=== PATIENT | female | born 1970 | race Caucasian/White ===

== ENCOUNTER 2023-08-13 15:06 | Inpatient (IN) | payer SELFPAY ==
[~2023-08-13] VITALS: Ht 172.7 cm; Wt 75.9 kg
[2023-08-13 16:08] LABS: CLARITY URINE CLEAR (CLEAR); COLOR URINE YELLOW (YELLOW); GLUCOSE URINE 3+ (NEGATIVE); KETONES URINE NEGATIVE (NEGATIVE); LEUKOCYTE ESTERASE URINE NEGATIVE (NEGATIVE); NITRITE URINE NEGATIVE (NEGATIVE); OCCULT BLOOD URINE NEGATIVE (NEGATIVE); PH URINE 6.5 (4.5-8.0); PROTEIN URINE NEGATIVE (NEGATIVE); SPECIFIC GRAVITY URINE 1.023 (1.005-1.030); UROBILINOGEN URINE 0.2 E.U./dL (0.2-1.0)
[2023-08-13 16:24] LABS: CHLORIDE 95 mEq/L (98-107); POTASSIUM 5.1 mEq/L (3.5-5.1); SODIUM 126 mEq/L (136-145)
[2023-08-13 16:26] LABS: CALCIUM 9.6 mg/dL (8.7-10.4)
[2023-08-13 16:28] LABS: BACTERIA URINE NONE SEEN; RBC URINE NONE SEEN /hpf (0-2); SQUAMOUS EPITHELIAL CELL URINE RARE /lpf (RARE/1+); WBC URINE 0-2 /hpf (0-2)
[2023-08-13 16:30] LABS: CREATININE 0.8 mg/dL (0.6-1.0)
[2023-08-13 16:31] LABS: GLUCOSE 258 mg/dL (70-105); UREA NITROGEN BLOOD 5 mg/dL (9-23)
[2023-08-13 16:32] LABS: ALANINE AMINOTRANSFERASE 23 IU/L (10-49); ALBUMIN 4.6 g/dL (3.2-4.8); ASPARTATE AMINOTRANSFERASE 43 IU/L (<34)
[2023-08-13 16:33] LABS: BILIRUBIN TOTAL 0.6 mg/dL (0.1-1.0); PROTEIN TOTAL 6.9 g/dL (6.0-8.3)
[2023-08-13 16:35] LABS: BILIRUBIN DIRECT < 0.1 mg/dL (<=3.0); CARBON DIOXIDE < 10 mEq/L (21-32)
[2023-08-13 16:53] LABS: BASOPHILS % 0.3 % (0.0-2.0); EOSINOPHILS % 1.1 % (0.0-5.0); HEMATOCRIT. 36.4 % (36.0-48.0); HEMOGLOBIN. 12.2 g/dL (12.0-16.0); LYMPHOCYTES % 19.3 % (20.0-50.0); MEAN CORPUSCULAR HEMOGLOBIN 30.4 pg (28.0-32.0); MEAN CORPUSCULAR HGB CONC 33.5 g/dL (31.0-37.0); MEAN CORPUSCULAR VOLUME 90.6 fL (81.0-99.0); MEAN PLATELET VOLUME 9.5 fl (7.4-10.4); MONOCYTES % 5.1 % (2.0-8.0); NEUTROPHILS % 74.2 % (40.0-76.0); PLATELET 378 x1000/uL (130-400); RED BLOOD CELL COUNT 4.01 mill/uL (4.2-5.4); RED CELL DISTRIBUTION WIDTH 13.3 % (11.6-14.6); WHITE BLOOD COUNT 11.6 x1000/uL (4.5-11.0)
[2023-08-13] MEDS: SODIUM CHLORIDE 0.9% 1,000 ML IV SCH (20:15)
[2023-08-13] MEDS ORDERED: KCL 20MEQ/100ML PREMIX 100 ML IV PRN (20:15)
[2023-08-13] MEDS ORDERED: DEXTROSE 50% WATER 50ML SYRINGE IV PRN (20:15)
[2023-08-13] MEDS ORDERED: MAGNESIUM 2 G PREMIX 50 ML IV PRN (20:15)
[2023-08-13] MEDS: DEXT 5%/0.9% NACL 1,000 ML IV SCH (20:15)
[2023-08-13] MEDS: LACTATED RINGERS 1,000 ML IV SCH (20:15)
[2023-08-13] MEDS ORDERED: SODIUM PHOSPHATE 15 MMOL in SODIUM CHLORIDE 0.9% 245 ML IV PRN (20:15)
[2023-08-13] MEDS: BLOOD SUGAR DIAGNOSTIC STRIP TEST SCH (20:15)
[2023-08-13] MEDS ORDERED: BLOOD SUGAR DIAGNOSTIC STRIP TEST PRN (20:15)
[2023-08-13] MEDS ORDERED: INSULIN REGULAR (DRIP) 100 UNITS in SODIUM CHLORIDE 0.9% 99 ML IV SCH (20:15)
[2023-08-13 20:43] LABS: CHLORIDE 96 mEq/L (98-107); POTASSIUM 4.7 mEq/L (3.5-5.1); SODIUM 129 mEq/L (136-145)
[2023-08-13 20:52] LABS: PHOSPHORUS 3.4 mg/dL (2.5-4.9)
[2023-08-13 21:00] LABS: CARBON DIOXIDE < 10 mEq/L (21-32)
[2023-08-13 21:57] LABS: BG BASE EXCESS 1.9 mmol/L (-2.0-2.0); BG CARBOXYHEMOGLOBIN 0.5 % (0.5-1.5); BG DEOXYHEMOGLOBIN 5.9 % (0.0-5.0); BG METHEMOGLOBIN 0.2 % (0.0-1.5); BG OXYGEN SATURATION 94.1 % (92.0-98.5); BG OXYHEMOGLOBIN 93.4 % (94.0-97.0); BG PCO2 34.8 mmHg (35.0-45.0); BG PH 7.475 (7.350-7.450); BG PO2 69.9 mmHg (75.0-100.0); BG TOTAL HEMOGLOBIN 14.4 g/dL (12.0-18.0)
[2023-08-13] MEDS: INSULIN REGULAR 100U/100ML PMX 100 ML IV SCH (22:10)
[2023-08-14] VITALS (37 sets, daily range): BP systolic 101–157; BP diastolic 65–96; PULSE 72–93; RESP 0–30; TEMP 97.7–100.5
[2023-08-14 01:44] LABS: CHLORIDE 104 mEq/L (98-107); POTASSIUM 3.1 mEq/L (3.5-5.1); SODIUM 135 mEq/L (136-145)
[2023-08-14 01:52] LABS: CARBON DIOXIDE < 10 mEq/L (21-32)
[2023-08-14] MEDS: POTASSIUM CHLORIDE 40 MEQ in SODIUM CHLORIDE 0.9% 230 ML IV PRN (03:36)
[2023-08-14] MEDS ORDERED: POTASSIUM CHLORIDE 40 MEQ in SODIUM CHLORIDE 0.9% 230 ML IV PRN (06:15)
[2023-08-14] MEDS ORDERED: SODIUM PHOSPHATE 15 MMOL in SODIUM CHLORIDE 0.9% 245 ML IV PRN (06:15)
[2023-08-14] MEDS: BLOOD SUGAR DIAGNOSTIC STRIP TEST SCH (06:35)
[2023-08-14] MEDS: LACTATED RINGERS 1,000 ML IV PRN (06:35)
[2023-08-14 07:03] LABS: BASOPHILS % 0.3 % (0.0-2.0); EOSINOPHILS % 0.5 % (0.0-5.0); HEMATOCRIT. 37.3 % (36.0-48.0); HEMOGLOBIN. 13.2 g/dL (12.0-16.0); LYMPHOCYTES % 14.9 % (20.0-50.0); MEAN CORPUSCULAR HEMOGLOBIN 32.4 pg (28.0-32.0); MEAN CORPUSCULAR HGB CONC 35.4 g/dL (31.0-37.0); MEAN CORPUSCULAR VOLUME 91.4 fL (81.0-99.0); MEAN PLATELET VOLUME 8.4 fl (7.4-10.4); MONOCYTES % 5.9 % (2.0-8.0); NEUTROPHILS % 78.4 % (40.0-76.0); PLATELET 362 x1000/uL (130-400); RED BLOOD CELL COUNT 4.08 mill/uL (4.2-5.4); RED CELL DISTRIBUTION WIDTH 13.4 % (11.6-14.6); WHITE BLOOD COUNT 15.4 x1000/uL (4.5-11.0)
[2023-08-14 07:09] LABS: CHLORIDE 101 mEq/L (98-107); POTASSIUM 3.9 mEq/L (3.5-5.1); SODIUM 133 mEq/L (136-145)
[2023-08-14 07:10] LABS: CALCIUM 9.1 mg/dL (8.7-10.4); CARBON DIOXIDE 10 mEq/L (21-32)
[2023-08-14 07:15] LABS: CREATININE 0.6 mg/dL (0.6-1.0); GLUCOSE 217 mg/dL (70-105)
[2023-08-14 07:17] LABS: PHOSPHORUS 3.1 mg/dL (2.5-4.9)
[2023-08-14 07:30] LABS: UREA NITROGEN BLOOD < 5 mg/dL (9-23)
[2023-08-14] MEDS: MAGNESIUM 2 G PREMIX 50 ML IV PRN (14:20)
[2023-08-14] MEDS: INSULIN REGULAR 100U/100ML PMX 100 ML IV SCH (14:27)
[2023-08-14] MEDS: MORPHINE SULFATE 2 MG/ML CPJ (NOT FOR IM USE) IV PRN (14:35)
[2023-08-14 18:40] LABS: HEPATITIS B SURFACE ANTIGEN NEGATIVE (Negative)
[2023-08-14 18:45] LABS: CHLORIDE 105 mEq/L (98-107); POTASSIUM 3.3 mEq/L (3.5-5.1); SODIUM 137 mEq/L (136-145)
[2023-08-14 18:46] LABS: CARBON DIOXIDE 20 mEq/L (21-32)
[2023-08-14 18:47] LABS: CALCIUM 8.8 mg/dL (8.7-10.4)
[2023-08-14 18:51] LABS: CREATININE 0.5 mg/dL (0.6-1.0); GLUCOSE 133 mg/dL (70-105)
[2023-08-14 18:53] LABS: UREA NITROGEN BLOOD < 5 mg/dL (9-23)
[2023-08-14 18:54] LABS: PHOSPHORUS 2.7 mg/dL (2.5-4.9)
[2023-08-14 19:00] LABS: HEPATITIS A AB IGM NEGATIVE (Negative)
[2023-08-14 19:01] LABS: HEPATITIS B CORE AB IGM NEGATIVE (Negative); HEPATITIS C AB NON REACTIVE (Neg) (Negative)
[2023-08-14] MEDS: KCL 20MEQ/100ML PREMIX 100 ML IV PRN (19:58)
[2023-08-14] MEDS ORDERED: DEXTROSE 50% WATER 50ML SYRINGE IV PRN (20:30)
[2023-08-14] MEDS: INSULIN GLARGINE 100 UNITS/ML SUBCUT SCH (21:01)
[2023-08-14] MEDS: SODIUM CHLORIDE 0.9% 1,000 ML IV SCH (21:01)
[2023-08-14] MEDS: ACETAMINOPHEN 325MG TABLET PO PRN (21:01)
[2023-08-14] MEDS: INSULIN LISPRO 100 UNITS/ML SUBCUT SCH (21:02)
[2023-08-15] VITALS (19 sets, daily range): BP systolic 92–147; BP diastolic 52–94; PULSE 66–90; RESP 0–31; TEMP 97.1–98.9
[2023-08-15 05:12] LABS: AMYLASE 33 IU/L (30-118)
[2023-08-15 07:15] LABS: BASOPHILS % 0.4 % (0.0-2.0); CHLORIDE 107 mEq/L (98-107); EOSINOPHILS % 2.3 % (0.0-5.0); HEMOGLOBIN. 11.8 g/dL (12.0-16.0); LYMPHOCYTES % 22.2 % (20.0-50.0); MEAN CORPUSCULAR HEMOGLOBIN 30.7 pg (28.0-32.0); MEAN CORPUSCULAR HGB CONC 33.7 g/dL (31.0-37.0); MEAN CORPUSCULAR VOLUME 90.9 fL (81.0-99.0); MEAN PLATELET VOLUME 8.2 fl (7.4-10.4); MONOCYTES % 6.3 % (2.0-8.0); NEUTROPHILS % 68.8 % (40.0-76.0); PLATELET 330 x1000/uL (130-400); POTASSIUM 3.5 mEq/L (3.5-5.1); RED BLOOD CELL COUNT 3.85 mill/uL (4.2-5.4); RED CELL DISTRIBUTION WIDTH 13.8 % (11.6-14.6); SODIUM 136 mEq/L (136-145); WHITE BLOOD COUNT 12.8 x1000/uL (4.5-11.0)
[2023-08-15 07:16] LABS: CALCIUM 8.9 mg/dL (8.7-10.4); CARBON DIOXIDE 20 mEq/L (21-32)
[2023-08-15 07:21] LABS: CREATININE 0.5 mg/dL (0.6-1.0); GLUCOSE 173 mg/dL (70-105)
[2023-08-15 07:23] LABS: UREA NITROGEN BLOOD < 5 mg/dL (9-23)
[2023-08-15] MEDS: ENOXAPARIN 40MG/0.4ML SYR SUBCUT SCH (09:03)
[2023-08-15] MEDS: PANTOPRAZOLE SODIUM 40 MG/VIAL IV SCH (09:03)
[2023-08-15 09:09] LABS: BASOPHILS % 0.7 % (0.0-2.0); EOSINOPHILS % 2.2 % (0.0-5.0); HEMATOCRIT. 34.5 % (36.0-48.0); HEMOGLOBIN. 11.9 g/dL (12.0-16.0); LYMPHOCYTES % 21.3 % (20.0-50.0); MEAN CORPUSCULAR HEMOGLOBIN 31.6 pg (28.0-32.0); MEAN CORPUSCULAR HGB CONC 34.4 g/dL (31.0-37.0); MEAN CORPUSCULAR VOLUME 91.8 fL (81.0-99.0); MEAN PLATELET VOLUME 7.8 fl (7.4-10.4); MONOCYTES % 7.1 % (2.0-8.0); NEUTROPHILS % 68.7 % (40.0-76.0); PLATELET 350 x1000/uL (130-400); RED BLOOD CELL COUNT 3.75 mill/uL (4.2-5.4); RED CELL DISTRIBUTION WIDTH 13.7 % (11.6-14.6); WHITE BLOOD COUNT 11.2 x1000/uL (4.5-11.0)
[2023-08-15] MEDS ORDERED: NALOXONE HCL 0.4MG/ML VIAL IV PRN (09:15)
[2023-08-15 09:16] LABS: CHLORIDE 106 mEq/L (98-107); POTASSIUM 3.5 mEq/L (3.5-5.1); SODIUM 136 mEq/L (136-145)
[2023-08-15 09:17] LABS: CARBON DIOXIDE 22 mEq/L (21-32)
[2023-08-15 09:21] LABS: CREATININE 0.5 mg/dL (0.6-1.0); GLUCOSE 171 mg/dL (70-105)
[2023-08-15 09:22] LABS: UREA NITROGEN BLOOD 5 mg/dL (9-23)
[2023-08-15 09:23] LABS: AMYLASE 37 IU/L (30-118)
[2023-08-15] MEDS ORDERED: MAGNESIUM/ALUMINUM HYDROXIDE/SIMETHICONE 30ML UDC PO PRN (13:15)
[2023-08-15] MEDS: MAGNESIUM/ALUMINUM HYDROXIDE/SIMETHICONE 30ML UDC PO NR (13:15)
[2023-08-15] MEDS ORDERED: DEXTROSE 50% WATER 50ML SYRINGE IV PRN (19:30)
[2023-08-15] MEDS: BLOOD SUGAR DIAGNOSTIC STRIP TEST SCH ×2 (21:58)
[2023-08-15] MEDS: INSULIN LISPRO 100 UNITS/ML SUBCUT SCH (21:59)
[2023-08-16] VITALS: BP 123/66; PULSE 72; RESP 18; RESP 20; TEMP 97.5
[2023-08-16 04:00] VITALS: BP 115/63; PULSE 71; RESP 16; TEMP 97.5; TEMP 97.9
[2023-08-16 06:21] LABS: BASOPHILS % 0.7 % (0.0-2.0); EOSINOPHILS % 3.5 % (0.0-5.0); HEMATOCRIT. 35.4 % (36.0-48.0); HEMOGLOBIN. 12.2 g/dL (12.0-16.0); LYMPHOCYTES % 25.9 % (20.0-50.0); MEAN CORPUSCULAR HEMOGLOBIN 31.4 pg (28.0-32.0); MEAN CORPUSCULAR HGB CONC 34.4 g/dL (31.0-37.0); MEAN CORPUSCULAR VOLUME 91.2 fL (81.0-99.0); MONOCYTES % 7.8 % (2.0-8.0); NEUTROPHILS % 62.1 % (40.0-76.0); PLATELET 337 x1000/uL (130-400); RED BLOOD CELL COUNT 3.88 mill/uL (4.2-5.4); WHITE BLOOD COUNT 9.4 x1000/uL (4.5-11.0)
[2023-08-16 06:49] LABS: CALCIUM 9.1 mg/dL (8.7-10.4); CARBON DIOXIDE 23 mEq/L (21-32); CHLORIDE 104 mEq/L (98-107); POTASSIUM 3.6 mEq/L (3.5-5.1); SODIUM 137 mEq/L (136-145)
[2023-08-16 06:54] LABS: CREATININE 0.5 mg/dL (0.6-1.0)
[2023-08-16 06:55] LABS: GLUCOSE 169 mg/dL (70-105); UREA NITROGEN BLOOD 7 mg/dL (9-23)
[2023-08-16 08:00] VITALS: BP 130/67; PULSE 67; PULSE 69; RESP 18; TEMP 97.9
[2023-08-16 12:00] VITALS: BP 128/68; PULSE 68; RESP 18; TEMP 97.4
[2023-08-16 16:00] VITALS: BP 124/73; PULSE 66; RESP 18; TEMP 97.5
[2023-08-16 20:00] VITALS: BP 126/64; PULSE 72; RESP 18; TEMP 97.2
[2023-08-16] MEDS: DEXT 5%/0.9% NACL 1,000 ML IV SCH (21:48)
[2023-08-17] VITALS: BP 126/61; PULSE 67; RESP 18; TEMP 97.2
[2023-08-17 04:00] VITALS: BP 120/80; PULSE 63; RESP 18; TEMP 97.1
[2023-08-17 06:43] LABS: INR 0.9; PROTHROMBIN TIME 10.6 sec (9.6-11.0)
[2023-08-17 06:49] LABS: CALCIUM 9.1 mg/dL (8.7-10.4); CARBON DIOXIDE 22 mEq/L (21-32); CHLORIDE 105 mEq/L (98-107); POTASSIUM 3.5 mEq/L (3.5-5.1); SODIUM 136 mEq/L (136-145)
[2023-08-17 06:52] LABS: BASOPHILS % 0.6 % (0.0-2.0); EOSINOPHILS % 5.1 % (0.0-5.0); HEMATOCRIT. 34.1 % (36.0-48.0); HEMOGLOBIN. 11.8 g/dL (12.0-16.0); LYMPHOCYTES % 31.5 % (20.0-50.0); MEAN CORPUSCULAR HEMOGLOBIN 31.3 pg (28.0-32.0); MEAN CORPUSCULAR HGB CONC 34.5 g/dL (31.0-37.0); MEAN CORPUSCULAR VOLUME 90.9 fL (81.0-99.0); MONOCYTES % 7.7 % (2.0-8.0); NEUTROPHILS % 55.1 % (40.0-76.0); PLATELET 350 x1000/uL (130-400); RED BLOOD CELL COUNT 3.76 mill/uL (4.2-5.4); RED CELL DISTRIBUTION WIDTH 13.6 % (11.6-14.6); WHITE BLOOD COUNT 7.8 x1000/uL (4.5-11.0)
[2023-08-17 06:55] LABS: CREATININE 0.6 mg/dL (0.6-1.0); GLUCOSE 203 mg/dL (70-105)
[2023-08-17 06:56] LABS: UREA NITROGEN BLOOD 8 mg/dL (9-23)
[2023-08-17 08:00] VITALS: BP 120/62; PULSE 61; RESP 18; TEMP 97.9
[2023-08-17] MEDS ORDERED: PROPOFOL 200MG/20ML VIAL IV ONE (11:58)
[2023-08-17] MEDS ORDERED: ONDANSETRON HCL 4MG/2ML INJ IV PRN (12:00)
[2023-08-17 16:00] VITALS: BP 133/69; PULSE 60; RESP 18; TEMP 97.5
[2023-08-17 20:00] VITALS: BP 130/72; PULSE 60; RESP 20; TEMP 97.7
[2023-08-18] VITALS: BP 141/69; PULSE 66; RESP 19; TEMP 97.9
[2023-08-18 04:00] VITALS: BP 111/61; PULSE 63; RESP 18; TEMP 98.6
[2023-08-18] MEDS: LACTULOSE 20G/30ML UDC PO SCH (06:54)
[2023-08-18 08:00] VITALS: BP 120/82; PULSE 65; TEMP 96.3
[2023-08-18 12:00] VITALS: BP 128/81; PULSE 64; RESP 18; TEMP 96.9
[2023-08-18] MEDS ORDERED: INSLIS SUBCUT (14:06)
[2023-08-18] MEDS ORDERED: LANTUSUD SUBCUT (14:06)
[2023-08-18 15:53] VITALS: BP 120/80; PULSE 64; TEMP 96.6; O2SAT 98
[2023-08-18 16:00] VITALS: BP 120/80; PULSE 62; RESP 18; TEMP 96.8
== END 2023-08-18 18:30 | disposition home or self-care (01) | DRG 241 ==
LOC: ER 15:06 → CVICU 20:57 → EDBEDREQ 21:02 → 6WST 08-15 18:04
PROVIDERS: ADMIT Internal Medicine; ATTEND Internal Medicine
PROC: 0DB68ZX Excision of Stomach, Via Natural or Artificial Opening Endoscopic, Diagnostic (ICD-10-PCS; principal; 2023-08-17)
PROC: 0DB78ZX Excision of Stomach, Pylorus, Via Natural or Artificial Opening Endoscopic, Diagnostic (ICD-10-PCS; 2023-08-17)
DX: K29.70 Gastritis, unspecified, without bleeding (principal); K85.90 Acute pancreatitis without necrosis or infection, unspecified; E11.10 Type 2 diabetes mellitus with ketoacidosis without coma; R16.0 Hepatomegaly, not elsewhere classified; E16.1 Other hypoglycemia; E87.1 Hypo-osmolality and hyponatremia; E87.8 Other disorders of electrolyte and fluid balance, not elsewhere classified; K80.20 Calculus of gallbladder without cholecystitis without obstruction; Z91.148 Patient's other noncompliance with medication regimen for other reason; K76.0 Fatty (change of) liver, not elsewhere classified; K21.9 Gastro-esophageal reflux disease without esophagitis; Z79.4 Long term (current) use of insulin; Z79.84 Long term (current) use of oral hypoglycemic drugs
CPT/HCPCS: 36415; 36600; 74176; 74181; 76700; 80048; 80051; 80076; 81003; 82150; 82375; 82805; 82962; 82977; 83036; 83735; 83930; 84100; 85025; 86705; 86709; 87340; 88305; 93005; 99285; C9113; J1650; J1815; J2270; J2704; J3475; J3480; J7030; J7042; J7050; J7120